=== PATIENT | female | born 1980 | race Caucasian/White ===

== ENCOUNTER → 2017-02-10 | Outpatient (CLI) | payer BC, OTHER ==
[~2017-02-10] MED LIST: ACIPHEX20 MG; ALLERGY10 MG PO; ATIVAN0.5 MG PO; BUSPIRONE10 MG PO; CALCIUM 1200 W/1 SGL; CARAFATE1 G1 PO; COZAAR50 MG PO; CYMBALTA60 MG PO; DIFLUCAN150 MG PO; EES400 MG PO; FLEXERIL5 MG PO; LISINOPRIL5 MG PO; LOMOTIL 0.025 M1 TA1 PO; LOPRESSOR50 MG PO; METOPROLOL SUCC50 M2 PO; NASONEX0.05 MG/AC NAS; OXYBUTYNIN5 MG PO; PANTOPRAZOLE40 MG PO; PEPCID40 MG PO; SEROQUEL200 MG PO; TOPAMAX25 M1 PO; VENTOLIN H0.09 MG/AC INH; VICODIN 5/500 505 MG PO; VITAMIN C1000 M2 PO; VITAMIN D31000 I2 PO; WELLBUTRIN SR150 MG PO; ZOFRAN ODT4 MG SL
== END | disposition home or self-care (01) ==
LOC: CARD 09:00
DX: I51.7 Cardiomegaly (principal)

== ENCOUNTER → 2017-03-23 | Outpatient (CLI) | payer OTHER | END | disposition home or self-care (01) | LOC: CARD 07:41 | DX: R00.0 Tachycardia, unspecified (principal); R00.2 Palpitations ==

== ENCOUNTER 2017-06-04 07:31 | Emergency (ER) | payer OTHER ==
[~2017-06-04] VITALS: Ht 165.1 cm; Wt 147.4 kg
[2017-06-04] MEDS ORDERED: HYDR25T PO (07:39)
[2017-06-04] MEDS ORDERED: COZAAR100 MG PO (07:40)
[2017-06-04] MEDS ORDERED: ZITHROMAX250 MG PO (08:22)
== END 2017-06-04 08:27 | disposition home or self-care (01) ==
LOC: ED 07:31
DX: J40 Bronchitis, not specified as acute or chronic (principal); Z88.0 Allergy status to penicillin; Z88.1 Allergy status to other antibiotic agents; Z88.2 Allergy status to sulfonamides; Z88.6 Allergy status to analgesic agent; Z88.8 Allergy status to other drugs, medicaments and biological substances